=== PATIENT | female | born 1975 | race Caucasian/White ===

== ENCOUNTER 2019-01-27 15:21 | Emergency (ER) | payer BC ==
[~2019-01-27] VITALS: Ht 152.4 cm; Wt 54.4 kg
[2019-01-27 15:48] VITALS: Ht 152.4 cm; Wt 54.4 kg
[2019-01-27 17:40] VITALS: BP 137/97
== END 2019-01-27 17:40 | disposition home or self-care (01) ==
LOC: ED 15:21
DX: S61.412A Laceration without foreign body of left hand, initial encounter (principal); W26.0XXA Contact with knife, initial encounter; Y93.89 Activity, other specified; Y92.89 Other specified places as the place of occurrence of the external cause; Y99.8 Other external cause status
CPT/HCPCS: J2001

== ENCOUNTER 2019-08-16 05:28 | Emergency (ER) | payer BC ==
[~2019-08-16] VITALS: Ht 152.4 cm; Wt 52.7 kg
[2019-08-16 07:21] LABS: CALCIUM 8.6 mg/dL (8.5-10.1); CARBON DIOXIDE 25.2 mmol/L (21-32); CHLORIDE SERUM 101 mmol/L (98-107); CREATININE SERUM 0.7 mg/dL (0.6-1.0); GFR1 > 60 mL/min; GLUCOSE SERUM 107 mg/dL (74-106); POTASSIUM SERUM 3.6 mmol/L (3.5-5.1); SODIUM SERUM 138 mmol/L (136-145)
[2019-08-16 07:27] LABS: ALBUMIN 3.7 g/dL (3.4-5.0); ALKALINE PHOSPHATASE 86 U/L (46-116); ALT/SGPT 69 U/L (14-59); AST/SGOT 43 U/L (15-37); BILIRUBIN TOTAL 0.8 mg/dL (0.20-1.00); LIPASE 319 IU/L (73-393)
[2019-08-16 07:30] LABS: TOTAL PROTEIN, SERUM 8.6 g/dL (6.4-8.2)
[2019-08-16 08:46] LABS: PLATELET COUNT 533 x10^3mcL (130-400); RED CELL DISTRIBUTION WIDTH 20.9 % (11.5-14.5)
[2019-08-16 09:31] VITALS: BP 149/93
[2019-08-16 10:39] LABS: UA SPECIFIC GRAVITY 1.015 (1.005-1.035); microscopic required? YES; urine erythrocyte NEGATIVE (NEGATIVE)
[2019-08-16 11:23] LABS: BAND NEUTROPHIL 0 % (0-10); BASOPHIL 0 % (0-2); MONOCYTE 8 % (0-7); SEGMENTED NEUTROPHILS 82 % (37-75)
[2019-08-16 11:24] LABS: PLATELET MORPHOLOGY PLATELETS INCREASED; rbc morphology (normal/abnorm) ABNORMAL (NORMAL)
== END 2019-08-16 09:14 | disposition home or self-care (01) ==
LOC: ED 05:28
PROVIDERS: Student in an Organized Health Care Education/Training Program
DX: A08.4 Viral intestinal infection, unspecified (principal); D64.9 Anemia, unspecified; J45.909 Unspecified asthma, uncomplicated; Z98.890 Other specified postprocedural states
CPT/HCPCS: J7030